=== PATIENT | male | born 1970 | race Caucasian/White ===

== ENCOUNTER 2024-06-08 10:48 | Outpatient (CLI) | payer BC, SELFPAY ==
--- NOTE | ~2024-06-08 | MR_ITS ---
EXAMINATION: MR foot RT wo/w con DATE: 06/08/2024 12:19 INDICATION: Osteomyelitis at the right foot TECHNIQUE: Magnetic resonance imaging (MRI) of the right fore/mid foot was performed without and with 15 mL Multihance intravenous contrast. Sequences included axial, sagittal and coronal T1-weighted FS E; axial, sagittal and coronal fluid sensitive FSE STIR; axial T2-weighted FS FSE; axial T1-weighted FS FSE and postcontrast axial, sagittal and coronal T2-weighted FS FSE. COMPARISON: None FINDINGS: Small T2 hyperintense joint effusion at the first metatarsophalangeal joint with peripheral enhancing synovitis and surrounding soft tissue edema and non masslike enhancement suspicious for septic arthr itis. There is cortical erosion with marrow edema, enhancement and geographic regions of signal loss at the head of the first metatarsal, the fibular sesamoid at the base of the first proximal phalanx s uspicious for associated osteomyelitis. The tibial sesamoid is not visualized and has likely been eit her eroded or previously resected. There is millimeters distraction of a small avulsion fracture frag ment of the medial collateral ligament footplate at the base of the first proximal phalanx. There is secondary mild lateral subluxation and 30 degrees hallux valgus. There is been prior partial second toe amputation at the level of the proximal interphalangeal joint. Old healed fracture deformity at the fifth metatarsal neck with 10 degrees medial/varus angulation. Mild polyarticular osteoarthritis at the naviculocuneiform, first-third tarsal metatarsal joints and a few of the interphalangeal joints. No abscesses. IMPRESSION: 1. Septic arthritis at the first metatarsophalangeal joint with osteomyelitis at process of the joint space as well as along the fibular sesamoid. The tibial sesamoid is not identified and has likely ei ther eroded of the previously resected. 2. Chronic partial second toe amputation at level proximal interphalangeal joint and old healed dista l diaphyseal fracture of the fifth metatarsal. Reviewed, dictated and finalized at location A. [employer] IMPRESSION: 1. Septic arthritis at the first metatarsophalangeal joint with osteomyelitis a t process of the joint space as well as along the fibular sesamoid. The tibial sesamoid is not identified and has likely either eroded of the previously resec ravin. 2. Chronic partial second toe amputation at level proximal interphalangeal join t and old healed distal diaphyseal fracture of the fifth metatarsal.
== END 2024-06-08 10:49 | disposition home or self-care (01) ==
LOC: MICIMG 10:50
DX: M86.9 Osteomyelitis, unspecified (principal); M19.071 Primary osteoarthritis, right ankle and foot
CPT/HCPCS: 73720; A9577